=== PATIENT | female | born 1975 | race Caucasian/White ===

== ENCOUNTER 2019-02-15 08:45 | Inpatient (IN) | payer OTHER ==
[~2019-02-15] VITALS: Ht 152.4 cm; Wt 60.8 kg
[2019-02-15] MEDS ORDERED: MEGEST PO (09:45)
[2019-02-20] MEDS ORDERED: MEGESTROL ACETA40 MG PO (09:21)
[2019-02-20] MEDS ORDERED: VENLAFAXINE HCL75 M1 PO (09:21)
== END 2019-02-24 11:44 | disposition home or self-care (01) | DRG 742 ==
LOC: ADM 08:45 → SURH 08:45 → EDSTATUS 08:45 → SURH 02-19 08:45 → OB/GYN 02-20 08:31 → O/R 02-20 08:31 → SURH 02-20 08:45 → OB/GYN 02-20 21:50
PROVIDERS: ADMIT Obstetrics & Gynecology
PROC: 0UT70ZZ Resection of Bilateral Fallopian Tubes, Open Approach (ICD-10-PCS; 2019-02-20)
PROC: 0UT90ZZ Resection of Uterus, Open Approach (ICD-10-PCS; principal; 2019-02-20 08:30)
DX: D25.1 Intramural leiomyoma of uterus (principal); J98.11 Atelectasis; D25.2 Subserosal leiomyoma of uterus; N84.0 Polyp of corpus uteri; N72 Inflammatory disease of cervix uteri

== ENCOUNTER 2022-08-30 06:25 | Day surgery (SDC) | payer OTHER ==
[~2022-08-30] VITALS: Ht 152.4 cm; Wt 59.0 kg
[~2022-08-30 06:25] MED LIST: MEGEST PO; MEGESTROL ACETA40 MG PO; OXTELLAR XR150 MG; VENLAFAXINE HCL75 M1 PO; [UNRECOGNIZED DRUG - OTHER] PO
== END 2022-08-30 16:55 | disposition home or self-care (01) ==
LOC: CIR.AMB 06:25
PROVIDERS: ATTEND Orthopaedic Surgery Hand Surgery
DX: S62.101A Fracture of unspecified carpal bone, right wrist, initial encounter for closed fracture (principal); X58.XXXA Exposure to other specified factors, initial encounter; Y93.9 Activity, unspecified; Y92.9 Unspecified place or not applicable; Z88.6 Allergy status to analgesic agent; Z86.16 Personal history of COVID-19; E16.2 Hypoglycemia, unspecified; Z20.822 Contact with and (suspected) exposure to COVID-19
CPT/HCPCS: 25609; 25280; 25118; L8699

== ENCOUNTER 2022-08-30 06:53 | Outpatient (CLI) | payer OTHER | END 2022-08-30 12:31 | disposition home or self-care (01) | LOC: LAB 06:53 | PROVIDERS: ATTEND Orthopaedic Surgery Hand Surgery | DX: Z20.822 Contact with and (suspected) exposure to COVID-19 (principal) ==

== ENCOUNTER 2023-10-10 09:46 | Day surgery (SDC) | payer OTHER ==
[2023-10-04 08:20] LABS: URINE APPEARANCE Clear; URINE BILIRRUBIN Negative (NEGATIVE); URINE BLOOD Negative; URINE COLOR Yellow; URINE GLUCOSE Negative (NEGATIVE); URINE LEUKOCYTE Negative; URINE NITRATE Negative; URINE PROTEIN Negative (NEGATIVE); URINE UROBILINOGEN 0.2 E.U./dl
[2023-10-04 08:25] LABS: URINE BACTERIA 409.4 uL (0.0-1933); URINE EPITHELIAL CELLS 12.2 uL (0.0-38.8); URINE RBC 15.3 uL (0.0-20.8); URINE WBC 4.6 uL (0.0-23.2)
[2023-10-04 08:27] LABS: HEMATOCRIT 35.4 % (36.0-45.00); HEMOGLOBIN 12.6 g/dL (12.0-15.00); MEAN CELL VOLUME 90.2 fL (80.00-100.00); MEAN CORPUSCULAR HEMOGLOBIN 32.1 pg (27.00-32.0); MEAN CORPUSCULAR HGB CONC 35.6 g/dl (32.0-36.0); PLATELET COUNT 275 K/uL (150-450); RED BLOOD COUNT 3.93 M/uL (4.00-6.00); RED CELL DISTRIBUTION WIDTH 12.9 % (11.5-14.5)
[2023-10-04 08:40] LABS: INR 0.97; PARTIAL THROMBOPLASTIN TIME 28.6 SECONDS (22.0-34.0); PROTHROMBIN TIME 10.2 SECONDS (9.0-11.5)
[2023-10-04 08:49] LABS: ALBUMIN 4.2 gm/dL (3.4-5.0); BILIRUBIN TOTAL 1.11 mg/dL (0.3-1.2); CALCIUM 9.6 mg/dL (8.5-10.1); CREATININE SERUM 0.79 mg/dL (0.55-1.02); GFR 77.35; GLOBULINA 3.3 G/DL (2.4-3.5); POTASSIUM 4.74 mEq/L (3.5-5.1); TOTAL PROTEIN 7.5 gm/dL (6.4-8.2)
== END 2023-10-10 19:15 | disposition home or self-care (01) ==
LOC: CIR.AMB 09:46
PROVIDERS: ATTEND Orthopaedic Surgery Hand Surgery
DX: S62.101A Fracture of unspecified carpal bone, right wrist, initial encounter for closed fracture (principal); T84.89XA Other specified complication of internal orthopedic prosthetic devices, implants and grafts, initial encounter; Z88.0 Allergy status to penicillin; E11.9 Type 2 diabetes mellitus without complications; Z20.822 Contact with and (suspected) exposure to COVID-19